=== PATIENT | female | born 1975 | race Asian ===

== ENCOUNTER 2021-09-27 13:51 | Emergency (ER) | payer OTHER ==
[~2021-09-27] VITALS: Ht 157.5 cm; Wt 59.1 kg
[2021-09-27 16:38] LABS: BASO % 0.3 % (0.0-1.0); EOS % 0.3 % (0.0-3.0); HEMATOCRIT 38.8 % (36.0-47.0); LYMPH # 1.2 10^3/uL (1.5-5.0); LYMPH % 29.9 % (24.0-44.0); MEAN CORPUSCULAR HEMOGLOBIN 31.1 pg (27.0-33.0); MEAN CORPUSCULAR HGB CONC 33.5 g/dl (32.0-36.5); MEAN CORPUSCULAR VOLUME 92.8 fl (80.0-96.0); MONO # 0.3 10^3/uL (0.0-0.8); MONO % 6.6 % (2.0-8.0); NEUTROPHILS # 2.5 10^3/uL (1.5-8.5); NEUTROPHILS % 62.6 % (36.0-66.0); PLATELET COUNT, AUTOMATED 180 10^3/uL (150-450); RED BLOOD COUNT 4.18 10^6/uL (4.00-5.40); WHITE BLOOD COUNT 3.9 10^3/uL (4.0-10.0)
[2021-09-27] MEDS ORDERED: NS 1,000 ML IV ONE (16:50)
[2021-09-27] MEDS ORDERED: METOCLOPRAMIDE INJ 10MG/2ML VIAL (J2765 PER 1) IV ONE (16:50)
[2021-09-27] MEDS ORDERED: KETOROLAC 30 MG/ML 1ML VIAL IV ONE (16:50)
[2021-09-27 18:16] LABS: RSV AMPLIFICATION NEGATIVE (NEGATIVE)
[2021-09-27 18:17] LABS: ALBUMIN 3.2 GM/DL (3.2-5.2); ALT/SGPT 21 U/L (12-78); BILIRUBIN,DIRECT < 0.1 MG/DL (0.0-0.2); BILIRUBIN,TOTAL 0.3 MG/DL (0.2-1.0); BLOOD UREA NITROGEN 8 MG/DL (7-18); CALCIUM LEVEL 8.8 MG/DL (8.5-10.1); CARBON DIOXIDE LEVEL 26 MEQ/L (21-32); CHLORIDE LEVEL 111 MEQ/L (98-107); CREATININE FOR GFR 0.68 MG/DL (0.55-1.30); GLOMERULAR FILTRATION RATE > 60.0 (>58); GLUCOSE, FASTING 106 MG/DL (70-100); LIPASE 136 U/L (73-393); POTASSIUM SERUM 4.2 MEQ/L (3.5-5.1); SODIUM LEVEL 140 MEQ/L (136-145)
[2021-09-27 18:28] LABS: HCG, SERUM QUALITATIVE NEGATIVE (NEGATIVE)
[2021-09-27 20:16] VITALS: BP 124/78
== END 2021-09-27 20:30 | disposition home or self-care (01) ==
LOC: M ED 13:51
DX: R51.9 Headache, unspecified (principal)
CPT/HCPCS: 70450; 80048; 80076; 83690; 84703; 85025; 87631; 90471; 96361; 96374; 96375; 99284; J1885; J2765

== ENCOUNTER → 2022-02-15 | Outpatient (CLI) | payer OTHER | LOC: M WHC 07:09 | PROVIDERS: ATTEND Physician Assistant | DX: Z12.31 Encounter for screening mammogram for malignant neoplasm of breast (principal) ==

== ENCOUNTER → 2023-02-16 | Outpatient (CLI) | payer OTHER | LOC: M WHC 09:06 | PROVIDERS: ATTEND Pediatrics | DX: Z12.31 Encounter for screening mammogram for malignant neoplasm of breast (principal) ==

== ENCOUNTER → 2023-04-03 | Outpatient (REF) | payer OTHER ==
[2023-04-03 14:31] LABS: ALBUMIN 3.7 G/DL (3.2-5.2); ALKALINE PHOSPHATASE 62 U/L (46-116); ALT/SGPT 18 U/L (7.0-40); AST/SGOT 19 U/L (<34); BILIRUBIN,TOTAL 0.4 MG/DL (0.3-1.2); BLOOD UREA NITROGEN 17 MG/DL (9-23); CALCIUM LEVEL 9.3 MG/DL (8.5-10.1); CARBON DIOXIDE LEVEL 28 MMOL/L (20-31); CHLORIDE LEVEL 105 MMOL/L (98-107); CHOLESTEROL LEVEL 189 MG/DL (<200); CHOLESTEROL RISK RATIO 2.93 (<5); CREATININE FOR GFR 0.64 MG/DL (0.55-1.30); GLOMERULAR FILTRATION RATE > 60.0 (>58); GLUCOSE, FASTING 77 MG/DL (60-100); HDL CHOLESTEROL 64.4 MG/DL (>40); LDL CHOLESTEROL 115.4 MG/DL (<100); NON-HDL-C 124.6 MG/DL; POTASSIUM SERUM 4.6 MMOL/L (3.5-5.1); SODIUM LEVEL 138 MMOL/L (136-145); TOTAL PROTEIN 7.1 G/DL (5.7-8.2); TRIGLYCERIDES LEVEL 46 MG/DL (<150)
[2023-04-03 14:32] LABS: THYROID STIMULATING HORMONE 1.733 uIU/ML (0.55-4.78)
[2023-04-03 14:48] LABS: HEMOGLOBIN A1c 5.1 % (4.0-6.0)
== END ==
LOC: M LAB REF 12:27
PROVIDERS: ATTEND Pediatrics
DX: E55.9 Vitamin D deficiency, unspecified (principal); E66.3 Overweight

== ENCOUNTER → 2024-02-27 | Outpatient (CLI) | payer OTHER | LOC: M WHC 14:34 | PROVIDERS: ATTEND Obstetrics & Gynecology | DX: Z12.31 Encounter for screening mammogram for malignant neoplasm of breast (principal) ==

== ENCOUNTER → 2024-04-29 | Outpatient (REF) | payer OTHER | LOC: M LAB REF 12:21 | PROVIDERS: ATTEND Pediatrics | DX: E66.3 Overweight (principal) ==